=== PATIENT | female | born 1970 | race Caucasian/White ===

== ENCOUNTER → 2017-09-18 | Outpatient (CLI) | payer OTHER ==
[~2017-09-18] MED LIST: ALBINS/ INH; ALBUAER19 INH; ASTN; ATRINS NEB; BUDESUS NAE; CITA40TA4 PO; CLS1 PO; CYCL10TA6 PO; DICY10CA55 PO; FEXO3TAB PO; FLUT1INH INH; HYDR5SYP11 PO; LISI-461 PO; LORA-741 PO; NABU750T PO; OXGN; PLMINSR5 INH; PRLSR20 PO; SNG10 PO; SPRIN/30 INH; TRAM-10 PO; TRAZ-119 PO; TRIA0.1C20 TOP; TRIATAB3 PO
--- NOTE | 2017-09-19 05:36 | SPLIT NIGHT TECHNICIAN REPORT ---
[facility] Split Night Polysomnogram - Uptwist Spinner Report Study date: 09/18/2017 Referring Physician: Rylie Harden Name: KATT BRENNAN Uptwist Spinner: DARÍO Sims. Date of : 1970 Height: 47 years, Height 4' 10.5" Sex: Female Weight: 193 lbs Age: 47 Neck Circum:15 BMI: Medications: 39.65 Breo Ellipta 200-25mcg/inh.trovent HFA 17 mcg/act, Budesonide nasal spray 32 mcg/act, Bentyl 10mg, Ativan 0.5mg, Flexeril 5mg, Voltaren 75mg, Maxide 37.5-25mg, Prinivil 10mg, Deltasone 20mg, Doxycycline 100mg, Pulmicort 0.5mg/2ml soln, Cymbalta 50mg, Ultram 50mg, Singulair 10mg, Spiriva 18 mcg/inh, Proventil 2.5mg/3ml soln, Prilosec 20mg, Atrovent 0.02% soln, Vit D3, Papaya Enzyme, Hycodan 5-1.5mg/5ml syrp, Aristocort 0.1%lotion, Astelin 0.1% nasal spray, Fosamax 70mg, Desyrel 50mg, Oxygen Gas, Guaifenesin Er 600mg, Fexofenadine HCl 180mg Patient History Study started on room air with ETCO2 monitoring in room #6.47 yr old female here tonight for a possible split psg. She has severe asthma and hypoxemia. She snores, has unrefreshing sleep and has EDS. Her ESS=11/24. Neck circ=15.25inches. She did take her sleeping medication tonight. Parameters Monitored NPSG: E1-M2, E2-M1, Fp1-M2, Fp2-M1, F3-M2, F4-M2, F4-M1, C3-M2, C4-M2, C4-M1, O1-M2, O2-M2, O2-M1, T3-M2, T4-M1, P3-M2, P4-M1, CHIN1, CHIN2, HR, EKG, Legs, PFLOW, SNOR, FLOW, CFLOW, Tidal Volume, THOR, ABDO, SpO2, PLTH, CPRESS, ETCO2 Wave, ETCO2, pH SLEEP SUMMARY DATA DIAGNOSTIC TREATMENT Lights Out: 9:44:17 PM 12:41:47 AM Lights On: 12:32:17 AM 5:30:47 AM Total Recording Time (TRT): 168.0 min. 270.5 min. Total Sleep Time (TST): 139.5 min. 267.0 min. NREM Time: 139.5 min. 181.0 min. REM Time: 0.0 min. 86.0 min. Sleep Period Time (SPT): 141.0 min. 268.5 min. Sleep Efficiency (SE): 83 % 99 % Sleep Latency: 27.0 min. 2.0 min. Arousal Index: 29.7 11.5 PAP Treatment Levels: 4, 5, 6, 7, 8, 9, 10, 11 * Optimal Pressure(s) SLEEP STAGING DATA DIAGNOSTIC TREATMENT Duration (min) TST % Duration (min) TST % Stage Wake: 28.5 min. -- 3.5 min. -- WASO: 1.5 min. -- 1.5 min. -- NREM: 139.5 min. 100 % 181.0 min. 68 % Stage N1: 5.0 min. 4 % 10.5 min. 4 % Stage N2: 68.5 min. 49 % 132.5 min. 50 % Stage N3: 66.0 min. 47 % 38.0 min. 14 % REM: 0.0 min. 0 % 86.0 min. 32 % POSITIONAL DATA Event Count Index Event Count Index Supine: 108 46 67 15.1 Supine NREM: 108 46.5 67 22.2 Supine REM: N/A N/A 0 0 Non-Supine: N/A N/A N/A N/A Non-Supine NREM: N/A N/A N/A N/A Non-Supine REM: N/A N/A N/A N/A AROUSAL SUMMARY DATA: Event Count Index Event Count Index Apnea Arousals: 0 0.0 1 0.2 Hypopnea Arousals: 24 10.3 15 3.4 Snore Arousals: 2 0.9 5 1.1 PLM Arousals: 38 16.3 18 4.0 Non-Specific Arousals: 2 0.9 8 1.8 Total Arousals: 69 29.7 51 11.5 MYOCLONUS (PLM) Event Count Index Event Count Index PLM: 217 93.3 72 16.2 PLM AROUSAL: 38 16.3 18 4.0 PLM W/O AROUSAL 217 93.3 54 12.1 PLM W/RESP EVENT 40 0.0 4 0.0 MYOCLONUS (PLM) Event Count Index Event Count Index LM: 3 35.7 122 27.4 LM AROUSAL: 3 1.3 5 1.1 LM W/O AROUSAL LM W/RESP EVENT LM NON SPECIFIC 155 66.7 109 24.5 HEART RATE DATA DIAGNOSTIC TREATMENT Sleep (bpm): 81 79 REM (bpm): N/A 94 NREM (bpm): 91 93 Tachycardia Count: 0 0 Tachycardia Duration: 0.00 0 Bradycardia Count: 0 0 Bradycardia Duration: 0.00 0 DIAGNOSTIC PORTION TREATMENT PORTION RESPIRATORY DATA Event Count Index Event Count Index AHI: -- 46.5 -- 15.1 RDI: -- 46.5 -- 15 Obstructive Apnea: 0 0.0 1 0.2 Central Apnea: 0 0.0 0 0.0 Mixed Apnea: 0 0.0 0 0.0 Hypopnea: 108 46.5 66 14.8 RERA: 0 0.0 0 0.0 Total Apneas: 0 0.0 1 0.2 RESPIRATORY DATA REM NREM SLEEP REM NREM SLEEP Supine Position: Obstructive Apneas: N/A 0 0 0 1 1 Central Apneas: N/A 0 0 0 0 0 Mixed Apneas: N/A 0 0 0 0 0 Hypopneas: N/A 108 108 0 66 66 RERA N/A 0 0 0 0 0 Total Supine Events: N/A 108 108 0 67 67 Supine AHI: N/A 46.5 46 0 22.2 15.1 Supine RDI: N/A 46.5 46.5 0.0 22.2 15.1 REM NREM SLEEP REM NREM SLEEP Non-Supine Position: Obstructive Apneas: N/A N/A N/A N/A N/A N/A Central Apneas: N/A N/A N/A N/A N/A N/A Mixed Apneas: N/A N/A N/A N/A N/A N/A Hypopneas: N/A N/A N/A N/A N/A N/A RERA N/A N/A N/A N/A N/A N/A Total Supine Events: N/A N/A N/A N/A N/A N/A Supine AHI: N/A N/A N/A N/A N/A N/A Supine RDI: N/A N/A N/A N/A N/A N/A OXYGEN DESTAURATION DATA: Event Count Index Event Count Index REM Desaturations: N/A N/A 0 0.0 NREM Desaturations: 166 71.4 79 26.2 SNORE DATA DIAGNOSTIC TREATMENT Snore Time: 13.9 12:43:47 AM Snore TST%: 6 8 Snore Arousal Count: 2 5 Snore Arousal Index: 0.9 1.1 Desaturation Event Summary: Minimum %SpO2 Event Count Mean/Min/Max Duration(sec.) Desaturation Index % Time In Bed > 90 243 22.2 / 5.8 / 60.0 43.1 77.2 86 - 90 29 18.1 / 5.8 / 52.5 17.7 22.5 81 - 85 0 N/A 0.0 0.3 76 - 80 0 N/A 0.0 0.0 71 - 75 0 N/A 0.0 0.0 66 - 70 0 N/A 0.0 0.0 61 - 65 0 N/A 0.0 0.0 56 - 60 0 N/A 0.0 0.0 51 - 55 0 N/A 0.0 0.0 < 50 0 N/A 0.0 0.0 OXYGEN SATURATION DATA DIAGNOSTIC TREATMENT SpO2 Mean Sleep: 91 % 93 % SpO2 Mean REM: N/A % 94 % SpO2 Mean NREM: 91 % 93 % SpO2 Minimum Sleep: 82 % 85 % SpO2 Minimum REM: N/A % 91 % SpO2 Minimum NREM: 82 % 85 % Time Below 90% (TST): 37.6 11.6 Time Below 88% (TST): 8.8 2.9 Total REM NREM Awake <50% 0.0 min. 0.0 min. 0.0 min. 0.0 min. 51 - 60% 0.0 min. 0.0 min. 0.0 min. 0.0 min. 61 - 70% 0.0 min. 0.0 min. 0.0 min. 0.0 min. 71 - 80% 0.0 min. 0.0 min. 0.0 min. 0.0 min. 81 - 90% 99.8 min. 0.0 min. 83.3 min. 16.5 min. 91 - 100% 338.2 min. 86.0 min. 236.9 min. 15.3 min. Average 92 94 92 91 Minimum SpO2 82 91 82 87 Desaturation Event Index 33.9 0.0 45.9 7.5 # Desat. Events below 89% 117 N/A 115 2 Time(%) with Saturation below 89% 6.1 0.0 5.7 0.5 Time(min.) with Saturation below 89% 26.8 0.0 24.8 2.1 Recording Uptwist Spinner Comments: Mrs. Brennan slept in the supine position. No cardiac arrhythmia noted. Total body movements were noted No bruxism noted. Snoring was noted and scored as a 3 on a scale of 1 through 5. (0=no snoring, 5=snoring loud enough to be heard through a closed door or down the abernathy way) At 12:41 am she had met specific Split-Night criteria during the diagnostic portion of this study. CPAP was initiated at +4 CMH2O and up-titrated to a level of +11 CMH2O. A small AirTouch F20 full face mask by [employer] was used during titration. She did not use the restroom during the night. She stated that she slept about the same as usual. The final report will be interpreted and signed by a sleep physician. The completed physician report will then be placed in the patient medical record. Therapy Event: Therapy (cm H20) 0 4 5 6 7 8 9 10 11 Total Time at Pressure (min.) 168.0 9.8 13.3 9.5 19.4 25.9 24.0 22.8 145.8 TST at Pressure (min.) 139.5 7.8 12.8 9.5 19.4 25.9 24.0 22.8 144.8 # Periods 1 1 1 1 1 1 1 1 1 Sleep Onset (min.) 27.0 2.0 0.0 0.0 0.0 0.0 0.0 0.0 0.0 REM Onset (min.) N/A N/A N/A N/A N/A N/A N/A N/A 44.8 Sleep Efficiency % 83 79 96 100 100 100 100 100 99 Wakefulness (%) 17.0 20.3 3.8 0.0 0.0 0.0 0.0 0.0 0.7 Wakefulness (min.) 28.5 2.0 0.5 0.0 0.0 0.0 0.0 0.0 1.0 NREM 1 (%) 3.0 10.2 7.5 0.0 2.6 0.0 4.2 2.2 4.5 NREM 1 (min.) 5.0 1.0 1.0 0.0 0.5 0.0 1.0 0.5 6.5 NREM 2 (%) 40.8 69.5 88.7 100.0 97.4 17.2 43.6 97.8 33.1 NREM 2 (min.) 68.5 6.8 11.8 9.5 18.9 4.4 10.5 22.3 48.3 NREM 3 (%) 39.3 0.0 0.0 0.0 0.0 82.8 52.2 0.0 2.7 NREM 3 (min.) 66.0 0.0 0.0 0.0 0.0 21.5 12.5 0.0 4.0 REM (%) 0.0 0.0 0.0 0.0 0.0 0.0 0.0 0.0 59.0 REM (min.) 0.0 0.0 0.0 0.0 0.0 0.0 0.0 0.0 86.0 # Arousals 69 3 11 5 10 0 6 7 9 Arousal Index 29.7 23.0 51.7 31.5 30.9 0.0 15.0 18.5 3.7 # Snore 631 45 85 80 125 163 62 28 202 Snore Index 271.4 344.3 399.4 503.9 386.2 377.6 154.8 73.8 83.7 AHI 46.5 30.6 23.5 0.0 27.8 41.7 25.0 42.2 2.1 AHI Supine 46.5 30.6 23.5 0.0 27.8 41.7 25.0 42.2 2.1 AHI Non-Supine N/A N/A N/A N/A N/A N/A N/A N/A N/A NREM AHI 46.5 30.6 23.5 0.0 27.8 41.7 25.0 42.2 5.1 REM AHI N/A N/A N/A N/A N/A N/A N/A N/A 0.0 RDI 46.5 30.6 23.5 0.0 27.8 41.7 25.0 42.2 2.1 # Obstructive 0 0 0 0 0 0 0 0 1 # Central Ap 0 0 0 0 0 0 0 0 0 # Mixed 0 0 0 0 0 0 0 0 0 # Hypopneas 108 4 5 0 9 18 10 16 4 RERAS 0 0 0 0 0 0 0 0 0 Total Respiratory Events 108 4 5 0 9 18 10 16 5 Time Below SpO2 89.00% (min.) 19.6 0.1 0.2 0.2 1.1 1.5 1.1 1.0 0.2 Mean NREM SpO2 (%) 91 92 92 91 93 93 93 93 93 Mean REM SpO2 (%) N/A N/A N/A N/A N/A N/A N/A N/A 94 Mean Sleep SpO2 (%) 91 92 92 91 93 93 93 93 93 Min NREM SpO2 (%) 82 88 86 87 85 86 85 85 88 Min REM SpO2 (%) N/A N/A N/A N/A N/A N/A N/A N/A 91 Position Supine (min.) 139.5 7.8 12.8 9.5 19.4 25.9 24.0 22.8 144.8 Position Non-supine (min.) 0.0 0.0 0.0 0.0 0.0 0.0 0.0 0.0 0.0 LM Index Sleep 129.0 107.1 131.6 50.4 80.3 74.1 62.4 68.6 14.5 LM Index NREM 129.0 107.1 131.6 50.4 80.3 74.1 62.4 68.6 34.7 LM Index REM N/A N/A N/A N/A N/A N/A N/A N/A 0.7 Mean Heart Rate (bpm) 81 77 76 78 79 79 79 78 80 Min Heart Rate (bpm) 70 68 67 67 68 66 66 68 68
--- NOTE | 2017-09-19 05:39 | SPLIT NIGHT TECHNICIAN REPORT ---
[facility] Split Night Polysomnogram - Cvicu Nurse Report Study date: 09/18/2017 Referring Physician: Rylie Harden Name: KATT BRENNAN Cvicu Nurse: DARÍO Sims. Date of : 1970 Height: 47 years, Height 4' 10.5" Sex: Female Weight: 193 lbs Age: 47 Neck Circum:15.25in. BMI: Medications: 39.65 Breo Ellipta 200-25mcg/inhA.trovent HFA 17 mcg/act, Budesonide nasal spray 32 mcg/act, Bentyl 10mg, Ativan 0.5mg, Flexeril 5mg, Voltaren 75mg, Maxide 37.5-25mg, Prinivil 10mg, Deltasone 20mg, Doxycycline 100mg, Pulmicort 0.5mg/2ml soln, Cymbalta 50mg, Ultram 50mg, Singulair 10mg, Spiriva 18 mcg/inh, Proventil 2.5mg/3ml soln, Prilosec 20mg, Atrovent 0.02% soln, Vit D3, Papaya Enzyme, Hycodan 5-1.5mg/5ml syrp, Aristocort 0.1%lotion, Astelin 0.1% nasal spray, Fosamax 70mg, Desyrel 50mg, Oxygen Gas, Guaifenesin Er 600mg, Fexofenadine HCl 180mg Patient History Study started on room air with ETCO2 monitoring in room #6.47 yr old female here tonight for a possible split psg. She has severe asthma and hypoxemia. She snores, has unrefreshing sleep and has EDS. Her ESS=11/24. Neck circ=15.24inches. she did take her sleeping medication tonight. Parameters Monitored NPSG: E1-M2, E2-M1, Fp1-M2, Fp2-M1, F3-M2, F4-M2, F4-M1, C3-M2, C4-M2, C4-M1, O1-M2, O2-M2, O2-M1, T3-M2, T4-M1, P3-M2, P4-M1, CHIN1, CHIN2, HR, EKG, Legs, PFLOW, SNOR, FLOW, CFLOW, Tidal Volume, THOR, ABDO, SpO2, PLTH, CPRESS, ETCO2 Wave, ETCO2, pH SLEEP SUMMARY DATA DIAGNOSTIC TREATMENT Lights Out: 9:44:17 PM 12:41:47 AM Lights On: 12:32:17 AM 5:30:47 AM Total Recording Time (TRT): 168.0 min. 289.0 min. Total Sleep Time (TST): 139.5 min. 285.5 min. NREM Time: 139.5 min. 199.5 min. REM Time: 0.0 min. 86.0 min. Sleep Period Time (SPT): 141.0 min. 287.0 min. Sleep Efficiency (SE): 83 % 99 % Sleep Latency: 27.0 min. 2.0 min. Arousal Index: 29.7 10.7 PAP Treatment Levels: 4, 5, 6, 7, 8, 9, 10, 11 * Optimal Pressure(s) SLEEP STAGING DATA DIAGNOSTIC TREATMENT Duration (min) TST % Duration (min) TST % Stage Wake: 28.5 min. -- 3.5 min. -- WASO: 1.5 min. -- 1.5 min. -- NREM: 139.5 min. 100 % 199.5 min. 70 % Stage N1: 5.0 min. 4 % 10.5 min. 4 % Stage N2: 68.5 min. 49 % 151.0 min. 53 % Stage N3: 66.0 min. 47 % 38.0 min. 13 % REM: 0.0 min. 0 % 86.0 min. 30 % POSITIONAL DATA Event Count Index Event Count Index Supine: 108 46 67 14.1 Supine NREM: 108 46.5 67 20.2 Supine REM: N/A N/A 0 0 Non-Supine: N/A N/A N/A N/A Non-Supine NREM: N/A N/A N/A N/A Non-Supine REM: N/A N/A N/A N/A AROUSAL SUMMARY DATA: Event Count Index Event Count Index Apnea Arousals: 0 0.0 1 0.2 Hypopnea Arousals: 24 10.3 15 3.2 Snore Arousals: 2 0.9 5 1.1 PLM Arousals: 38 16.3 18 3.8 Non-Specific Arousals: 2 0.9 8 1.7 Total Arousals: 69 29.7 51 10.7 MYOCLONUS (PLM) Event Count Index Event Count Index PLM: 217 93.3 72 15.1 PLM AROUSAL: 38 16.3 18 3.8 PLM W/O AROUSAL 217 93.3 54 11.3 PLM W/RESP EVENT 40 0.0 4 0.0 MYOCLONUS (PLM) Event Count Index Event Count Index LM: 3 35.7 123 25.8 LM AROUSAL: 3 1.3 5 1.1 LM W/O AROUSAL LM W/RESP EVENT LM NON SPECIFIC 155 66.7 110 23.1 HEART RATE DATA DIAGNOSTIC TREATMENT Sleep (bpm): 81 80 REM (bpm): N/A 94 NREM (bpm): 91 93 Tachycardia Count: 0 0 Tachycardia Duration: 0.00 0 Bradycardia Count: 0 0 Bradycardia Duration: 0.00 0 DIAGNOSTIC PORTION TREATMENT PORTION RESPIRATORY DATA Event Count Index Event Count Index AHI: -- 46.5 -- 14.1 RDI: -- 46.5 -- 14 Obstructive Apnea: 0 0.0 1 0.2 Central Apnea: 0 0.0 0 0.0 Mixed Apnea: 0 0.0 0 0.0 Hypopnea: 108 46.5 66 13.9 RERA: 0 0.0 0 0.0 Total Apneas: 0 0.0 1 0.2 RESPIRATORY DATA REM NREM SLEEP REM NREM SLEEP Supine Position: Obstructive Apneas: N/A 0 0 0 1 1 Central Apneas: N/A 0 0 0 0 0 Mixed Apneas: N/A 0 0 0 0 0 Hypopneas: N/A 108 108 0 66 66 RERA N/A 0 0 0 0 0 Total Supine Events: N/A 108 108 0 67 67 Supine AHI: N/A 46.5 46 0 20.2 14.1 Supine RDI: N/A 46.5 46.5 0.0 20.2 14.1 REM NREM SLEEP REM NREM SLEEP Non-Supine Position: Obstructive Apneas: N/A N/A N/A N/A N/A N/A Central Apneas: N/A N/A N/A N/A N/A N/A Mixed Apneas: N/A N/A N/A N/A N/A N/A Hypopneas: N/A N/A N/A N/A N/A N/A RERA N/A N/A N/A N/A N/A N/A Total Supine Events: N/A N/A N/A N/A N/A N/A Supine AHI: N/A N/A N/A N/A N/A N/A Supine RDI: N/A N/A N/A N/A N/A N/A OXYGEN DESTAURATION DATA: Event Count Index Event Count Index REM Desaturations: N/A N/A 0 0.0 NREM Desaturations: 166 71.4 79 23.8 SNORE DATA DIAGNOSTIC TREATMENT Snore Time: 13.9 12:43:47 AM Snore TST%: 6 7 Snore Arousal Count: 2 5 Snore Arousal Index: 0.9 1.1 Desaturation Event Summary: Minimum %SpO2 Event Count Mean/Min/Max Duration(sec.) Desaturation Index % Time In Bed > 90 243 22.2 / 5.8 / 60.0 40.9 78.1 86 - 90 29 18.1 / 5.8 / 52.5 17.7 21.6 81 - 85 0 N/A 0.0 0.3 76 - 80 0 N/A 0.0 0.0 71 - 75 0 N/A 0.0 0.0 66 - 70 0 N/A 0.0 0.0 61 - 65 0 N/A 0.0 0.0 56 - 60 0 N/A 0.0 0.0 51 - 55 0 N/A 0.0 0.0 < 50 0 N/A 0.0 0.0 OXYGEN SATURATION DATA DIAGNOSTIC TREATMENT SpO2 Mean Sleep: 91 % 93 % SpO2 Mean REM: N/A % 94 % SpO2 Mean NREM: 91 % 93 % SpO2 Minimum Sleep: 82 % 85 % SpO2 Minimum REM: N/A % 91 % SpO2 Minimum NREM: 82 % 85 % Time Below 90% (TST): 37.6 11.6 Time Below 88% (TST): 8.8 2.9 Total REM NREM Awake <50% 0.0 min. 0.0 min. 0.0 min. 0.0 min. 51 - 60% 0.0 min. 0.0 min. 0.0 min. 0.0 min. 61 - 70% 0.0 min. 0.0 min. 0.0 min. 0.0 min. 71 - 80% 0.0 min. 0.0 min. 0.0 min. 0.0 min. 81 - 90% 99.8 min. 0.0 min. 83.3 min. 16.5 min. 91 - 100% 356.7 min. 86.0 min. 255.4 min. 15.3 min. Average 92 94 92 91 Minimum SpO2 82 91 82 87 Desaturation Event Index 32.6 0.0 43.4 7.5 # Desat. Events below 89% 117 N/A 115 2 Time(%) with Saturation below 89% 5.9 0.0 5.4 0.5 Time(min.) with Saturation below 89% 26.8 0.0 24.8 2.1 Recording Cvicu Nurse Comments: Mrs. Brennan slept in the supine position. No cardiac arrhythmia noted. Total body movements were noted No bruxism noted. Snoring was noted and scored as a 3 on a scale of 1 through 5. (0=no snoring, 5=snoring loud enough to be heard through a closed door or down the [address]ern[address] way) At 12:41 am she had met specific Split-Night criteria during the diagnostic portion of this study. CPAP was initiated at +4 CMH2O and up-titrated to a level of +11 CMH2O. A small AirTouch F20 full face mask by [employer] was used during titration. She did not use the restroom during the night. She stated that she slept about the same as usual. The final report will be interpreted and signed by a sleep physician. The completed physician report will then be placed in the patient medical record. Therapy Event: Therapy (cm H20) 0 4 5 6 7 8 9 10 11 Total Time at Pressure (min.) 168.0 9.8 13.3 9.5 19.4 25.9 24.0 22.8 164.3 TST at Pressure (min.) 139.5 7.8 12.8 9.5 19.4 25.9 24.0 22.8 163.3 # Periods 1 1 1 1 1 1 1 1 1 Sleep Onset (min.) 27.0 2.0 0.0 0.0 0.0 0.0 0.0 0.0 0.0 REM Onset (min.) N/A N/A N/A N/A N/A N/A N/A N/A 44.8 Sleep Efficiency % 83 79 96 100 100 100 100 100 99 Wakefulness (%) 17.0 20.3 3.8 0.0 0.0 0.0 0.0 0.0 0.6 Wakefulness (min.) 28.5 2.0 0.5 0.0 0.0 0.0 0.0 0.0 1.0 NREM 1 (%) 3.0 10.2 7.5 0.0 2.6 0.0 4.2 2.2 4.0 NREM 1 (min.) 5.0 1.0 1.0 0.0 0.5 0.0 1.0 0.5 6.5 NREM 2 (%) 40.8 69.5 88.7 100.0 97.4 17.2 43.6 97.8 40.6 NREM 2 (min.) 68.5 6.8 11.8 9.5 18.9 4.4 10.5 22.3 66.8 NREM 3 (%) 39.3 0.0 0.0 0.0 0.0 82.8 52.2 0.0 2.4 NREM 3 (min.) 66.0 0.0 0.0 0.0 0.0 21.5 12.5 0.0 4.0 REM (%) 0.0 0.0 0.0 0.0 0.0 0.0 0.0 0.0 52.4 REM (min.) 0.0 0.0 0.0 0.0 0.0 0.0 0.0 0.0 86.0 # Arousals 69 3 11 5 10 0 6 7 9 Arousal Index 29.7 23.0 51.7 31.5 30.9 0.0 15.0 18.5 3.3 # Snore 631 45 85 80 125 163 62 28 309 Snore Index 271.4 344.3 399.4 503.9 386.2 377.6 154.8 73.8 113.6 AHI 46.5 30.6 23.5 0.0 27.8 41.7 25.0 42.2 1.8 AHI Supine 46.5 30.6 23.5 0.0 27.8 41.7 25.0 42.2 1.8 AHI Non-Supine N/A N/A N/A N/A N/A N/A N/A N/A N/A NREM AHI 46.5 30.6 23.5 0.0 27.8 41.7 25.0 42.2 3.9 REM AHI N/A N/A N/A N/A N/A N/A N/A N/A 0.0 RDI 46.5 30.6 23.5 0.0 27.8 41.7 25.0 42.2 1.8 # Obstructive 0 0 0 0 0 0 0 0 1 # Central Ap 0 0 0 0 0 0 0 0 0 # Mixed 0 0 0 0 0 0 0 0 0 # Hypopneas 108 4 5 0 9 18 10 16 4 RERAS 0 0 0 0 0 0 0 0 0 Total Respiratory Events 108 4 5 0 9 18 10 16 5 Time Below SpO2 89.00% (min.) 19.6 0.1 0.2 0.2 1.1 1.5 1.1 1.0 0.2 Mean NREM SpO2 (%) 91 92 92 91 93 93 93 93 93 Mean REM SpO2 (%) N/A N/A N/A N/A N/A N/A N/A N/A 94 Mean Sleep SpO2 (%) 91 92 92 91 93 93 93 93 93 Min NREM SpO2 (%) 82 88 86 87 85 86 85 85 88 Min REM SpO2 (%) N/A N/A N/A N/A N/A N/A N/A N/A 91 Position Supine (min.) 139.5 7.8 12.8 9.5 19.4 25.9 24.0 22.8 163.3 Position Non-supine (min.) 0.0 0.0 0.0 0.0 0.0 0.0 0.0 0.0 0.0 LM Index Sleep 129.0 107.1 131.6 50.4 80.3 74.1 62.4 68.6 13.2 LM Index NREM 129.0 107.1 131.6 50.4 80.3 74.1 62.4 68.6 27.2 LM Index REM N/A N/A N/A N/A N/A N/A N/A N/A 0.7 Mean Heart Rate (bpm) 81 77 76 78 79 79 79 78 81 Min Heart Rate (bpm) 70 68 67 67 68 66 66 68 68
--- NOTE | 2017-09-19 15:51 | POLYSOMNOGRAPH REPORT ---
CLINICAL DATA: A 47-year-old female with BMI of 36.7 referred by Rylie Harden for a split night sleep study. She has severe asthma and nocturnal hypoxemia. She snores and has unrefreshing sleep with excessive daytime sleepiness. Her [place] Sleepiness Score is 11/24. This was a split night study. SLEEP ARCHITECTURE: For the diagnostic portion of the study, sleep period was 141 minutes. Total sleep time was 139.5 minutes, all non-REM sleep. Sleep latency was 27 minutes. Sleep efficiency was 83%. Sleep consisted of stage N1 4%, stage N2 49%, and stage N3 47%. For the treatment portion of the study, sleep period time was 287 minutes. Total sleep time was 285.5 minutes divided between 199.5 minutes of non-REM sleep and 86 minutes of REM sleep. Sleep latency was 2 minutes. Sleep consisted of stage N1 4%, stage N2 53%, stage N3 13%, and REM 30%. AROUSAL DATA: Prior to treatment, 69 arousals were recorded for an index of 29.7 per hour. During treatment, 51 arousals were recorded for an index of 10.7 per hour. PLM DATA: Prior to treatment, 217 limb movements during sleep were noted for an index of 93.3 per hour. During sleep, 110 limb movements were noted for an index of 23.1 per hour. EKG: Heart rates ranged from 80-94 beats per minute. No arrhythmias were noted. RESPIRATORY DATA: Prior to treatment, severe sleep apnea was documented. The AHI was 46.5. There were 108 hypopneic episodes. The average AHI during treatment was 14.1. There was 1 obstructive apneic episode and 66 hypopneic episodes. OXIMETRY DATA: Nocturnal hypoxemia was seen prior to treatment. Oxygen cornelius was 82% during non-REM sleep prior to treatment. Mean saturation for the treatment was 93%. EDUCATION DEAN'S COMMENTS AND TREATMENT SUMMARY: The patient slept supine. The patient had total body movements throughout the night. No bruxism was noted. Snoring was rated moderate, 3 on a scale of 1 through 5. At 12:41 a.m., she met split night criteria. She used a small AirTouch F20 full facemask by [employer] and was titrated up to her final pressure of 11 cm of water pressure. At that pressure setting, she slept for 163 minutes with an AHI of 1.8. IMPRESSION: Severe sleep apnea/hypopnea with nocturnal hypoxemia with a diagnostic AHI of 46.5 corrected with CPAP 11 cm of water pressure, small AirTouch F20 full [facility]emask [facility]. RECOMMENDATIONS: The patient should be started on the above noted treatment regimen and seen back in followup within 90 days to document efficacy and compliance. MTDD
== END | disposition home or self-care (01) ==
LOC: C.NEUR 20:00
PROVIDERS: ATTEND Nurse Practitioner Family
DX: G47.34 Idiopathic sleep related nonobstructive alveolar hypoventilation (principal); J45.50 Severe persistent asthma, uncomplicated; G47.10 Hypersomnia, unspecified